=== PATIENT | female | born 1990 | race Two or more races ===

== ENCOUNTER 2023-11-14 19:11 | Emergency (ER) | payer OTHER ==
[~2023-11-14] VITALS: Ht 170.2 cm; Wt 63.5 kg
[2023-11-14] MEDS ORDERED: PIPERACILLIN/TAZOBACTAM SODIUM 3.375 GM VIAL IV STA (21:25)
[2023-11-14] MEDS ORDERED: ACETAMINOPHEN WITH CODEINE 1 UDTAB TABLET PO STA (21:25)
== END 2023-11-15 03:56 | disposition home or self-care (01) ==
LOC: ER 19:11
DX: Z01.89 Encounter for other specified special examinations (principal); L02.31 Cutaneous abscess of buttock